=== PATIENT | female | born 1980 | race Hispanic/Latino ===

== ENCOUNTER 2017-04-07 18:53 | Emergency (ER) | payer MEDICAID, OTHER ==
[2017-04-07 20:34] LABS: APPEARANCE,URINE Clear (CLEAR); BILIRUBIN,URINE Negative (NEGATIVE); COLOR,URINE Yellow (YELLOW); GLUCOSE, URINE (UA) Negative (NEGATIVE); KETONES,URINE Negative (NEGATIVE); LEUKOCYTE ESTERASE ,URINE Negative (NEGATIVE); NITRATE,URINE Negative (NEGATIVE); OCCULT BLOOD,URINE Negative (NEGATIVE); PROTEIN,URINE Negative (NEGATIVE); UROBILINOGEN,URINE 0.2 mg/dL (0.2-1.0)
[2017-04-07 20:36] LABS: HCG,QUAL RESULT NEGATIVE (NEGATIVE)
== END 2017-04-07 22:15 | disposition home or self-care (01) ==
LOC: EDH 18:53
DX: N83.292 Other ovarian cyst, left side (principal); N83.291 Other ovarian cyst, right side; F41.9 Anxiety disorder, unspecified; Z90.49 Acquired absence of other specified parts of digestive tract; Z98.890 Other specified postprocedural states
CPT/HCPCS: 76830; 76856; 81003; 81025

== ENCOUNTER 2017-04-15 08:27 | Emergency (ER) | payer MEDICAID, OTHER ==
[2017-04-15] MEDS ORDERED: IBUPROFEN 800 MG TAB ONE (09:09)
[2017-04-15 09:12] LABS: BASOPHILS % (AUTO) 0.8 % (0.0-5.0); EOSINOPHILS % (AUTO) 2.1 % (0.0-8.0); HEMATOCRIT 26.2 % (36-48); LYMPHOCYTES % (AUTO) 28.6 % (21.0-51.0); MEAN CORPUSCULAR HEMOGLOBIN 18.4 pg (27.0-33.0); MEAN CORPUSCULAR HGB CONC 31.6 g/dL (32.0-36.0); MEAN CORPUSCULAR VOLUME 58.2 fL (79-99); MONOCYTES % (AUTO) 9.2 % (3.0-13.0); NEUTROPHILS % (AUTO) 59.3 % (40.0-77.0); PLATELET COUNT (AUTO) 400 K/uL (130-400); RED CELL DISTRIBUTION WIDTH 19.5 % (11.0-15.5)
[2017-04-15 09:17] LABS: CREATININE 0.7 mg/dL (0.5-1.5); POTASSIUM 3.9 mmol/L (3.5-5.1)
[2017-04-15 09:19] LABS: APPEARANCE,URINE Clear (CLEAR); BILIRUBIN,URINE Negative (NEGATIVE); COLOR,URINE Yellow (YELLOW); GLUCOSE, URINE (UA) Negative (NEGATIVE); KETONES,URINE Negative (NEGATIVE); LEUKOCYTE ESTERASE ,URINE Negative (NEGATIVE); NITRATE,URINE Negative (NEGATIVE); OCCULT BLOOD,URINE Negative (NEGATIVE); PROTEIN,URINE Negative (NEGATIVE); UROBILINOGEN,URINE 0.2 mg/dL (0.2-1.0)
[2017-04-15 09:20] LABS: HCG,QUAL RESULT NEGATIVE (NEGATIVE)
[2017-04-15 09:23] LABS: ALBUMIN 3.3 g/dL (3.5-5.0); BILIRUBIN,TOTAL 0.2 mg/dL (0.2-1.0); TOTAL PROTEIN, SERUM 8.1 g/dL (6.0-8.3)
[2017-04-15] MEDS ORDERED: ESTROGENS,CONJUGATED 25 MG/VIAL IM SCH (09:45)
== END 2017-04-15 10:39 | disposition home or self-care (01) ==
LOC: EDH 08:27
DX: D64.9 Anemia, unspecified (principal); N93.8 Other specified abnormal uterine and vaginal bleeding; Z90.49 Acquired absence of other specified parts of digestive tract; Z98.890 Other specified postprocedural states
CPT/HCPCS: 36415; 80053; 81003; 81025; 85025; 96372; 99284; A4218; J1410

== ENCOUNTER 2017-04-15 14:15 | Emergency (ER) | payer MEDICAID, OTHER ==
[2017-04-15] MEDS ORDERED: SODIUM CHLORIDE 0.9% 1000ML 1,000 ML IV ONE (15:27)
[2017-04-15] MEDS ORDERED: DiphenhydrAMINE HCL 50 MG/ML VIAL ONE (15:27)
[2017-04-15] MEDS ORDERED: METHYLPREDNISOLONE SOD SUCC 125MG/2ML VIAL ONE (15:27)
[2017-04-15] MEDS ORDERED: FAMOTIDINE/PF 20 MG/2 ML VIAL IV ONE (15:27)
[2017-04-15 15:30] LABS: BASOPHILS % (AUTO) 0.5 % (0.0-5.0); EOSINOPHILS % (AUTO) 0.4 % (0.0-8.0); HEMATOCRIT 26.7 % (36-48); LYMPHOCYTES % (AUTO) 14.2 % (21.0-51.0); MEAN CORPUSCULAR HEMOGLOBIN 18.4 pg (27.0-33.0); MEAN CORPUSCULAR HGB CONC 31.9 g/dL (32.0-36.0); MEAN CORPUSCULAR VOLUME 57.7 fL (79-99); NEUTROPHILS % (AUTO) 78.9 % (40.0-77.0); PLATELET COUNT (AUTO) 436 K/uL (130-400); RED BLOOD CELL COUNT(AUTO) 4.63 MIL/uL (4.00-5.50); RED CELL DISTRIBUTION WIDTH 18.5 % (11.0-15.5); WHITE BLOOD COUNT (AUTO) 10.5 K/uL (4.8-10.8)
[2017-04-15] MEDS ORDERED: ONDANSETRON HCL 4 MG/2 ML VIAL ONE (15:52)
== END 2017-04-15 18:35 | disposition home or self-care (01) ==
LOC: EDH 14:15
DX: T78.49XA Other allergy, initial encounter (principal); X58.XXXA Exposure to other specified factors, initial encounter
CPT/HCPCS: 36415 ×2; 80053; 81003; 81025; 85025 ×2; 96361; 96372; 96374; 96375; 99284 ×2; A4218; J1200; J1410; J2405; J2930; J3490; J7030

== ENCOUNTER 2017-11-23 11:13 | Emergency (ER) | payer MEDICAID | END 2017-11-23 13:44 | disposition home or self-care (01) | LOC: EDH 11:13 | DX: J10.1 Influenza due to other identified influenza virus with other respiratory manifestations (principal); R11.2 Nausea with vomiting, unspecified; Z90.49 Acquired absence of other specified parts of digestive tract; Z98.890 Other specified postprocedural states; Z87.891 Personal history of nicotine dependence | CPT/HCPCS: 87804; 87880 ==

== ENCOUNTER 2018-09-08 17:03 | Emergency (ER) | payer MEDICAID ==
[2018-09-08] MEDS ORDERED: DICYCLOMINE HCL 10 MG/ML 2ML AMP IM ONE (17:47)
[2018-09-08] MEDS ORDERED: SODIUM CHLORIDE 0.9% 1000ML 1,000 ML IV ONE (17:47)
[2018-09-08] MEDS ORDERED: FAMOTIDINE/PF 20 MG/2 ML VIAL IV ONE (17:47)
[2018-09-08] MEDS ORDERED: ONDANSETRON HCL 4 MG/2 ML VIAL ONE (17:47)
[2018-09-08 17:55] LABS: BASOPHILS % (AUTO) 0.3 % (0.0-5.0); EOSINOPHILS % (AUTO) 0.3 % (0.0-8.0); HEMATOCRIT 30.9 % (36-48); MEAN CORPUSCULAR HEMOGLOBIN 19.1 pg (27.0-33.0); MEAN CORPUSCULAR HGB CONC 30.4 g/dL (32.0-36.0); MEAN CORPUSCULAR VOLUME 62.8 fL (79-99); NEUTROPHILS % (AUTO) 86.4 % (40.0-77.0); PLATELET COUNT (AUTO) 409 K/uL (130-400); RED BLOOD CELL COUNT(AUTO) 4.91 MIL/uL (4.00-5.50); RED CELL DISTRIBUTION WIDTH 18.5 % (11.0-15.5); WHITE BLOOD COUNT (AUTO) 11.6 K/uL (4.8-10.8)
[2018-09-08 18:01] LABS: CREATININE 0.9 mg/dL (0.5-1.5); POTASSIUM 3.9 mmol/L (3.5-5.1)
[2018-09-08 18:13] LABS: ALBUMIN 3.2 g/dL (3.5-5.0); BILIRUBIN,TOTAL 0.4 mg/dL (0.2-1.0); TOTAL PROTEIN, SERUM 8.2 g/dL (6.0-8.3)
[2018-09-08 19:00] LABS: OCCULT BLOOD STOOL SINGLE ONLY NEGATIVE (NEGATIVE)
== END 2018-09-08 20:20 | disposition home or self-care (01) ==
LOC: EDH 17:03
DX: A09 Infectious gastroenteritis and colitis, unspecified (principal); F41.9 Anxiety disorder, unspecified; Z90.49 Acquired absence of other specified parts of digestive tract; Z98.890 Other specified postprocedural states
CPT/HCPCS: 36415; 80053; 82150; 82270; 83630; 83690; 84702; 85025; 87046; 87324; 96365; 96372; 96375; 99285; J0500; J2405; J3490; J7030

== ENCOUNTER 2019-03-08 01:44 | Emergency (ER) | payer MEDICAID ==
[2019-03-08] MEDS ORDERED: DEXAMETHASONE SOD PHOSPHATE 10MG/ML 1ML VIAL ONE (02:27)
[2019-03-08] MEDS ORDERED: CEFTRIAXONE SODIUM 1 GM ONE (02:27)
[2019-03-08] MEDS ORDERED: LIDOCAINE HCL-MPF 1% 2ML VIAL ONE (02:28)
== END 2019-03-08 03:48 | disposition home or self-care (01) ==
LOC: EDH 01:44
DX: J20.9 Acute bronchitis, unspecified (principal); F41.9 Anxiety disorder, unspecified; Z90.49 Acquired absence of other specified parts of digestive tract; Z98.890 Other specified postprocedural states; Z72.0 Tobacco use
CPT/HCPCS: 71046; 87804 ×2; 96372 ×2; 99285; J0696; J1100; J3490

== ENCOUNTER 2019-12-27 18:49 | Emergency (ER) | payer MEDICAID ==
[2019-12-27] MEDS ORDERED: KETOROLAC TROMETHAMINE 30MG/ML ONE (20:21)
== END 2019-12-27 20:30 | disposition home or self-care (01) ==
LOC: EDH 18:49
DX: S83.8X2A Sprain of other specified parts of left knee, initial encounter (principal); Z90.49 Acquired absence of other specified parts of digestive tract; Z98.890 Other specified postprocedural states; X58.XXXA Exposure to other specified factors, initial encounter; Y93.89 Activity, other specified; Y92.89 Other specified places as the place of occurrence of the external cause; Y99.8 Other external cause status
CPT/HCPCS: 73562; 96372; 99283; J1885

== ENCOUNTER 2020-03-09 21:14 | Emergency (ER) | payer OTHER, MEDICAID ==
[2020-03-09] MEDS ORDERED: PHENAZOPYRIDINE HCL 200 MG TABLET ONE (21:42)
[2020-03-09] MEDS ORDERED: ACETAMINOPHEN 500 MG TABLET ONE (21:42)
[2020-03-09 21:46] LABS: BASOPHILS % (AUTO) 0.5 % (0.0-5.0); EOSINOPHILS % (AUTO) 1.1 % (0.0-8.0); LYMPHOCYTES % (AUTO) 25.6 % (21.0-51.0); MEAN CORPUSCULAR HEMOGLOBIN 22.1 pg (27.0-33.0); MEAN CORPUSCULAR HGB CONC 31.1 g/dL (32.0-36.0); MEAN CORPUSCULAR VOLUME 71.3 fL (79-99); MONOCYTES % (AUTO) 6.2 % (3.0-13.0); NEUTROPHILS % (AUTO) 66.4 % (40.0-77.0); PLATELET COUNT (AUTO) 372 K/uL (130-400); RED BLOOD CELL COUNT(AUTO) 5.33 MIL/uL (4.00-5.50); RED CELL DISTRIBUTION WIDTH 20.5 % (11.0-15.5); WHITE BLOOD COUNT (AUTO) 8.8 K/uL (4.8-10.8)
[2020-03-09 21:47] LABS: APPEARANCE,URINE Cloudy (CLEAR); BILIRUBIN,URINE Negative (NEGATIVE); COLOR,URINE Yellow (YELLOW); GLUCOSE, URINE (UA) >=1000 mg/dL (NEGATIVE); KETONES,URINE Trace mg/dL (NEGATIVE); LEUKOCYTE ESTERASE ,URINE Moderate (NEGATIVE); NITRATE,URINE Negative (NEGATIVE); OCCULT BLOOD,URINE Small (NEGATIVE); PROTEIN,URINE POS 2+ mg/dL (NEGATIVE)
[2020-03-09 22:00] LABS: BACTERIA,URINE Few /HPF (None Seen)
[2020-03-09 22:01] LABS: MUCUS,URINE Few LPF (None Seen); SQUAMOUS EPITHELIAL CELL,UR Moderate /HPF (0-2)
[2020-03-09] MEDS ORDERED: CEFTRIAXONE 1G VIAL ONE (22:14)
[2020-03-09 22:15] LABS: CREATININE 1.1 mg/dL (0.5-1.5); POTASSIUM 3.8 mmol/L (3.5-5.1)
[2020-03-09] MEDS ORDERED: 0.9%NACL 1000ML 1,000 ML IV ONE (22:15)
[2020-03-09] MEDS ORDERED: 0.9%NACL 100ML 100 ML IV ONE (22:15)
[2020-03-09 22:19] LABS: ALBUMIN 3.5 g/dL (3.5-5.0); BILIRUBIN,TOTAL 0.2 mg/dL (0.2-1.0); TOTAL PROTEIN, SERUM 8.2 g/dL (6.0-8.3)
== END 2020-03-09 23:18 | disposition home or self-care (01) ==
LOC: EDH 21:14
DX: N30.00 Acute cystitis without hematuria (principal); E66.09 Other obesity due to excess calories; R73.9 Hyperglycemia, unspecified; F41.9 Anxiety disorder, unspecified; Z90.49 Acquired absence of other specified parts of digestive tract; Z98.890 Other specified postprocedural states
CPT/HCPCS: 36415; 80053; 81001; 82010; 82948 ×2; 83690; 85025; 87088; 96365; 96375; 99284; J0696; J7030

== ENCOUNTER 2020-07-14 11:04 | Emergency (ER) | payer OTHER, MEDICAID ==
[2020-07-14 12:08] LABS: BASOPHILS % (AUTO) 0.6 % (0.0-5.0); EOSINOPHILS % (AUTO) 1.7 % (0.0-8.0); HEMATOCRIT 37.4 % (36-48); LYMPHOCYTES % (AUTO) 26.7 % (21.0-51.0); MEAN CORPUSCULAR HEMOGLOBIN 23.9 pg (27.0-33.0); MEAN CORPUSCULAR HGB CONC 31.8 g/dL (32.0-36.0); MEAN CORPUSCULAR VOLUME 75.1 fL (79-99); MONOCYTES % (AUTO) 7.4 % (3.0-13.0); NEUTROPHILS % (AUTO) 63.2 % (40.0-77.0); PLATELET COUNT (AUTO) 333 K/uL (130-400); RED BLOOD CELL COUNT(AUTO) 4.98 MIL/uL (4.00-5.50); RED CELL DISTRIBUTION WIDTH 14.1 % (11.0-15.5)
[2020-07-14 12:21] LABS: ALBUMIN 3.4 g/dL (3.5-5.0); BILIRUBIN,TOTAL 0.3 mg/dL (0.2-1.0); CREATININE 0.7 mg/dL (0.5-1.5); POTASSIUM 4.2 mmol/L (3.5-5.1); TOTAL PROTEIN, SERUM 8.2 g/dL (6.0-8.3)
[2020-07-14] MEDS ORDERED: SODIUM CHLORIDE 0.9% 1000ML 1,000 ML IV ONE (13:07)
[2020-07-14 13:23] LABS: APPEARANCE,URINE Clear (CLEAR); BILIRUBIN,URINE Negative (NEGATIVE); COLOR,URINE Yellow (YELLOW); GLUCOSE, URINE (UA) >=1000 mg/dL (NEGATIVE); KETONES,URINE Negative (NEGATIVE); LEUKOCYTE ESTERASE ,URINE Negative (NEGATIVE); NITRATE,URINE Negative (NEGATIVE); OCCULT BLOOD,URINE Negative (NEGATIVE); PH,URINE 5.5 (5.0-8.0); PROTEIN,URINE Trace mg/dL (NEGATIVE); UROBILINOGEN,URINE 0.2 mg/dL (0.2-1.0)
[2020-07-14 13:37] LABS: BACTERIA,URINE Rare /HPF (None Seen); RBC,URINE 0-1 /HPF (0-1); SQUAMOUS EPITHELIAL CELL,UR Rare /HPF (0-2); WBC,URINE 0-1 /HPF (0-1)
== END 2020-07-14 14:47 | disposition home or self-care (01) ==
LOC: EDH 11:04
DX: E11.65 Type 2 diabetes mellitus with hyperglycemia (principal); I10 Essential (primary) hypertension; F41.9 Anxiety disorder, unspecified; Z98.890 Other specified postprocedural states; Z90.49 Acquired absence of other specified parts of digestive tract
CPT/HCPCS: 36415; 80053; 81001; 82948 ×2; 85025; 96360; 96361; 99283; J7030

== ENCOUNTER 2021-02-22 05:55 | Day surgery (SDC) | payer MEDICAID, OTHER ==
[2021-02-19 15:55] LABS: BASOPHILS % (AUTO) 0.4 % (0.0-5.0); EOSINOPHILS % (AUTO) 1.1 % (0.0-8.0); HEMATOCRIT 38.8 % (36-48); LYMPHOCYTES % (AUTO) 27.4 % (21.0-51.0); MEAN CORPUSCULAR HEMOGLOBIN 22.5 pg (27.0-33.0); MEAN CORPUSCULAR HGB CONC 30.9 g/dL (32.0-36.0); MEAN CORPUSCULAR VOLUME 72.7 fL (79-99); MONOCYTES % (AUTO) 6.8 % (3.0-13.0); PLATELET COUNT (AUTO) 391 K/uL (130-400); RED BLOOD CELL COUNT(AUTO) 5.34 MIL/uL (4.00-5.50); RED CELL DISTRIBUTION WIDTH 15.9 % (11.0-15.5); WHITE BLOOD COUNT (AUTO) 8.9 K/uL (4.8-10.8)
[2021-02-21] MEDS: CEFAZOLIN SODIUM 2 GM VIAL IV SCH (08:30)
[2021-02-21 09:27] VITALS: BP 162/75
[2021-02-22] VITALS (16 sets, daily range): BP systolic 144–170; BP diastolic 81–108
[~2021-02-22] VITALS: Ht 167.6 cm; Wt 105.8 kg
[2021-02-22] MEDS ORDERED: CEFAZOLIN SODIUM 1 GM VIAL ONE (06:15)
[2021-02-22] MEDS ORDERED: 0.9%NACL 1000ML 1,000 ML IV ONE (06:15)
[2021-02-22] MEDS ORDERED: METF-444 PO (06:24)
[2021-02-22] MEDS ORDERED: LOSA25TA41 PO (06:24)
[2021-02-22] MEDS ORDERED: CANA300T PO (06:24)
[2021-02-22] MEDS ORDERED: ESTR1TAB17 PO (06:24)
[2021-02-22 07:03] LABS: CREATININE 0.7 mg/dL (0.5-1.5)
[2021-02-22] MEDS ORDERED: ROCURONIUM 10MG/1ML SYR 10 MG/ML ML ONE (07:09)
[2021-02-22] MEDS ORDERED: FENTANYL CITRATE PF 50 MCG/1 ML 2ML VIAL ONE (07:09)
[2021-02-22] MEDS ORDERED: MIDAZOLAM HCL 1 MG/ML 2ML VIAL ONE (07:09)
[2021-02-22] MEDS ORDERED: NEOSTIGMINE 5MG/5ML SYR IV ONE (07:09)
[2021-02-22] MEDS ORDERED: GLYCOPYRROLATE 1 MG/5 ML SYRINGE ONE (07:09)
[2021-02-22] MEDS ORDERED: LIDOCAINE PF 100MG/5ML (2%) SYRINGE 5ML ONE (07:09)
[2021-02-22] MEDS ORDERED: PROPOFOL 10 MG/ML 20ML VIAL IV ONE (07:09)
[2021-02-22] MEDS ORDERED: DEXAMETHASONE SOD PHOSPHATE 10MG/ML 1ML VIAL ONE (07:10)
[2021-02-22] MEDS ORDERED: ONDANSETRON 4MG INJ ONE (07:10)
[2021-02-22] MEDS: CEFAZOLIN SODIUM 2 GM VIAL IV SCH (07:39)
[2021-02-22] MEDS ORDERED: HYDRALAZINE 20MG/ML VIAL ONE (08:35)
[2021-02-22] MEDS ORDERED: MEPERIDINE-PF 25 MG/ML SYG ONE (08:49)
== END 2021-02-22 09:45 | disposition home or self-care (01) ==
LOC: DAH 05:55
PROVIDERS: ATTEND Obstetrics & Gynecology
DX: N92.0 Excessive and frequent menstruation with regular cycle (principal); Z20.822 Contact with and (suspected) exposure to COVID-19; E11.9 Type 2 diabetes mellitus without complications; I10 Essential (primary) hypertension; Z79.01 Long term (current) use of anticoagulants; Z79.899 Other long term (current) drug therapy
CPT/HCPCS: 36415 ×2; 58563; 80048; 82948 ×2; 84703; 85025; 86850 ×2; 86900 ×2; 86901 ×2; 87635; A4215; A4221; A4222; A4223; A4351; A4355; A4600; A4663; A4930; A6260; C9803; J0360; J0690; J1100; J2175; J2250; J2405; J2710; J3010; J3490 ×3; J7030 ×2; J2001; J2704

== ENCOUNTER 2022-06-14 09:18 | Emergency (ER) | payer MEDICAID, OTHER ==
[~2022-06-14] VITALS: Ht 165.1 cm; Wt 100.2 kg
[~2022-06-14 09:18] MED LIST: CANA300T PO; ESTR1TAB17 PO; LOSA25TA41 PO; METF-444 PO
[2022-06-14 09:19] VITALS: BP 164/95
[2022-06-14 09:58] LABS: BASOPHILS % (AUTO) 0.7 % (0.0-5.0); EOSINOPHILS % (AUTO) 1.1 % (0.0-8.0); HEMATOCRIT 37.9 % (36-48); LYMPHOCYTES % (AUTO) 21.5 % (21.0-51.0); MEAN CORPUSCULAR HEMOGLOBIN 22.7 pg (27.0-33.0); MEAN CORPUSCULAR HGB CONC 30.6 g/dL (32.0-36.0); MEAN CORPUSCULAR VOLUME 74.3 fL (79-99); MONOCYTES % (AUTO) 7.2 % (3.0-13.0); NEUTROPHILS % (AUTO) 69.1 % (40.0-77.0); PLATELET COUNT (AUTO) 361 K/uL (130-400); RED CELL DISTRIBUTION WIDTH 15.6 % (11.0-15.5); WHITE BLOOD COUNT (AUTO) 7.5 K/uL (4.8-10.8)
[2022-06-14 10:08] LABS: APPEARANCE,URINE CLOUDY (CLEAR); BILIRUBIN,URINE NEGATIVE (NEGATIVE); COLOR,URINE LIGHT-YELLOW (YELLOW); GLUCOSE, URINE (UA) NEGATIVE (NEGATIVE); KETONES,URINE NEGATIVE (NEGATIVE); LEUKOCYTE ESTERASE ,URINE 500 Leu/uL (NEGATIVE); NITRATE,URINE 1+ (NEGATIVE); OCCULT BLOOD,URINE MODERATE (NEGATIVE); PH,URINE 6.5 (5.0-8.0); PROTEIN,URINE 50 mg/dL (NEGATIVE); UROBILINOGEN,URINE 0.2 mg/dL (0.2-1.0)
[2022-06-14 10:16] LABS: HCG,QUALITATIVE URINE NEGATIVE (NEGATIVE)
[2022-06-14 10:21] LABS: CREATININE 0.7 mg/dL (0.5-1.5); POTASSIUM 3.7 mmol/L (3.5-5.1)
[2022-06-14 10:26] LABS: ALBUMIN 3.5 g/dL (3.5-5.0); TOTAL PROTEIN, SERUM 8.1 g/dL (6.0-8.3)
[2022-06-14 10:40] LABS: BACTERIA,URINE FEW /HPF (None Seen); MUCUS,URINE RARE LPF (None Seen); RBC,URINE 51-100 /HPF (0-1); SQUAMOUS EPITHELIAL CELL,UR FEW /HPF (0-2); WBC,URINE 51-100 /HPF (0-1)
[2022-06-14] MEDS ORDERED: CEPH500B PO (12:15)
[2022-06-14] MEDS ORDERED: CEFTRIAXONE 1G VIAL IM ONE (12:30)
== END 2022-06-14 12:50 | disposition home or self-care (01) ==
LOC: EDH 09:18
DX: N39.0 Urinary tract infection, site not specified (principal); Z79.84 Long term (current) use of oral hypoglycemic drugs; Z79.899 Other long term (current) drug therapy; Z90.49 Acquired absence of other specified parts of digestive tract; Z98.890 Other specified postprocedural states
CPT/HCPCS: 99283; 80053; 85025; 87077; 87088; 87186; 81001; 81025; 36415; 96372; J0696

== ENCOUNTER 2022-09-11 14:38 | Emergency (ER) | payer MEDICAID ==
[~2022-09-11] VITALS: Ht 165.1 cm; Wt 93.4 kg
[~2022-09-11 14:38] MED LIST changes: +CEPH500B PO
[2022-09-11 16:48] VITALS: BP 140/76
[2022-09-11 17:00] LABS: BASOPHILS % (AUTO) 0.4 % (0.0-5.0); EOSINOPHILS % (AUTO) 0.7 % (0.0-8.0); HEMATOCRIT 38.5 % (36-48); LYMPHOCYTES % (AUTO) 24.4 % (21.0-51.0); MEAN CORPUSCULAR HEMOGLOBIN 22.4 pg (27.0-33.0); MEAN CORPUSCULAR HGB CONC 30.4 g/dL (32.0-36.0); MEAN CORPUSCULAR VOLUME 73.6 fL (79-99); MONOCYTES % (AUTO) 7.3 % (3.0-13.0); NEUTROPHILS % (AUTO) 66.9 % (40.0-77.0); PLATELET COUNT (AUTO) 416 K/uL (130-400); RED BLOOD CELL COUNT(AUTO) 5.23 MIL/uL (4.00-5.50); RED CELL DISTRIBUTION WIDTH 15.2 % (11.0-15.5); WHITE BLOOD COUNT (AUTO) 9.2 K/uL (4.8-10.8)
[2022-09-11 17:09] LABS: APPEARANCE,URINE CLOUDY (CLEAR); BILIRUBIN,URINE NEGATIVE (NEGATIVE); COLOR,URINE YELLOW (YELLOW); GLUCOSE, URINE (UA) NEGATIVE (NEGATIVE); KETONES,URINE 5 mg/dL (NEGATIVE); LEUKOCYTE ESTERASE ,URINE 25 Leu/uL (NEGATIVE); NITRATE,URINE NEGATIVE (NEGATIVE); OCCULT BLOOD,URINE NEGATIVE (NEGATIVE); PROTEIN,URINE 50 mg/dL (NEGATIVE)
[2022-09-11 17:11] LABS: CREATININE 0.8 mg/dL (0.5-1.5); POTASSIUM 3.2 mmol/L (3.5-5.1)
[2022-09-11 17:12] LABS: HCG,QUALITATIVE URINE NEGATIVE (NEGATIVE)
[2022-09-11 17:16] LABS: ALBUMIN 3.9 g/dL (3.5-5.0); TOTAL PROTEIN, SERUM 8.8 g/dL (6.0-8.3)
[2022-09-11 17:28] LABS: BACTERIA,URINE FEW /HPF (None Seen); MUCUS,URINE MANY LPF (None Seen); SQUAMOUS EPITHELIAL CELL,UR MOD /HPF (0-2)
[2022-09-11] MEDS ORDERED: 0.9%NACL 1000ML 1,000 ML IV ONE (19:00)
[2022-09-11] MEDS ORDERED: CEFTRIAXONE 1G VIAL IVPB ONE (19:00)
[2022-09-11] MEDS ORDERED: POTASSIUM BICARB/CIT AC 25 MEQ TABLET.EFF PO ONE (19:00)
[2022-09-11] MEDS ORDERED: ONDA4TAB10 PO (20:18)
[2022-09-11] MEDS ORDERED: NITR100C PO (20:18)
== END 2022-09-11 20:30 | disposition home or self-care (01) ==
LOC: EDH 14:38
DX: N39.0 Urinary tract infection, site not specified (principal); E87.6 Hypokalemia; E11.9 Type 2 diabetes mellitus without complications; F41.9 Anxiety disorder, unspecified; F32.A Depression, unspecified; Z79.84 Long term (current) use of oral hypoglycemic drugs; Z79.899 Other long term (current) drug therapy; Z90.49 Acquired absence of other specified parts of digestive tract
CPT/HCPCS: 99284; 96365; 80053; 85025; 87077; 87088; 87186; 81001; 81025; 36415; J7030; J0696

== ENCOUNTER 2023-02-28 12:57 | Emergency (ER) | payer MEDICAID, OTHER ==
[~2023-02-28] VITALS: Ht 165.1 cm; Wt 93.0 kg
[~2023-02-28 12:57] MED LIST changes: +NITR100C PO; +ONDA4TAB10 PO
[2023-02-28 14:31] LABS: APPEARANCE,URINE CLEAR (CLEAR); BILIRUBIN,URINE NEGATIVE (NEGATIVE); COLOR,URINE LIGHT-YELLOW (YELLOW); GLUCOSE, URINE (UA) NEGATIVE (NEGATIVE); KETONES,URINE NEGATIVE (NEGATIVE); LEUKOCYTE ESTERASE ,URINE NEGATIVE Leu/uL (NEGATIVE); NITRATE,URINE NEGATIVE (NEGATIVE); OCCULT BLOOD,URINE NEGATIVE (NEGATIVE); PH,URINE 6.5 (5.0-8.0); PROTEIN,URINE 20 mg/dL (NEGATIVE); UROBILINOGEN,URINE 0.2 mg/dL (0.2-1.0)
[2023-02-28 14:32] LABS: ADD UA MICROSCOPIC YES
[2023-02-28 14:33] LABS: HCG,QUALITATIVE URINE NEGATIVE (NEGATIVE)
[2023-02-28 14:35] LABS: MUCUS,URINE RARE LPF (None Seen); SQUAMOUS EPITHELIAL CELL,UR MOD /HPF (0-2)
[2023-02-28 16:37] LABS: BASOPHILS # (AUTO) 0.04 K/uL (0.00-0.20); BASOPHILS % (AUTO) 0.5 % (0.0-5.0); EOSINOPHILS # (AUTO) 0.03 K/uL (0.00-0.70); EOSINOPHILS % (AUTO) 0.4 % (0.0-8.0); HEMATOCRIT 37.8 % (36-48); IMMATURE GRANULOCYTE ABSOLUTE 0.02 K/uL (0-1); LYMPHOCYTES # (AUTO) 2.8 K/uL (1.0-4.8); LYMPHOCYTES % (AUTO) 34.8 % (21.0-51.0); MEAN CORPUSCULAR HEMOGLOBIN 22.1 pg (27.0-33.0); MEAN CORPUSCULAR HGB CONC 30.7 g/dL (32.0-36.0); MEAN CORPUSCULAR VOLUME 71.9 fL (79-99); MONOCYTES # (AUTO) 0.5 K/uL (0.1-1.0); MONOCYTES % (AUTO) 6.1 % (3.0-13.0); NEUTROPHILS # (AUTO) 4.7 K/uL (1.8-7.7); PLATELET COUNT (AUTO) 441 K/uL (130-400); RED BLOOD CELL COUNT(AUTO) 5.26 MIL/uL (4.00-5.50); RED CELL DISTRIBUTION WIDTH 18.3 % (11.0-15.5); WHITE BLOOD COUNT (AUTO) 8.2 K/uL (4.8-10.8)
[2023-02-28 16:38] LABS: RAPID GROUP A STREP negative (NEGATIVE); SARS-CoV-2, RNA, NAAT NEGATIVE SARS CoV-2 (NEGATIVE)
[2023-02-28 16:48] LABS: CREATININE 0.7 mg/dL (0.5-1.5); POTASSIUM 3.7 mmol/L (3.5-5.1)
[2023-02-28 16:58] LABS: ALBUMIN 4.2 g/dL (3.5-5.0); BILIRUBIN,TOTAL 0.3 mg/dL (0.2-1.0); TOTAL PROTEIN, SERUM 9.1 g/dL (6.0-8.3)
[2023-02-28 17:07] LABS: INFLUENZA TYPE A Negative For Type A (NEGATIVE); INFLUENZA TYPE B Negative For Type B (NEGATIVE)
[2023-02-28] MEDS ORDERED: FAMO20TA8 PO (17:13)
[2023-02-28 17:58] VITALS: BP 131/74; PULSE 78; RESP 18; O2SAT 100
== END 2023-02-28 17:59 | disposition home or self-care (01) ==
LOC: EDH 12:57
DX: B34.9 Viral infection, unspecified (principal); K52.9 Noninfective gastroenteritis and colitis, unspecified; E11.9 Type 2 diabetes mellitus without complications; I10 Essential (primary) hypertension; F41.9 Anxiety disorder, unspecified; F32.A Depression, unspecified; Z79.84 Long term (current) use of oral hypoglycemic drugs; Z79.899 Other long term (current) drug therapy; Z90.49 Acquired absence of other specified parts of digestive tract; Z20.822 Contact with and (suspected) exposure to COVID-19
CPT/HCPCS: 99285; 71045; 87635; 84484; 80053; 85025; 87880; 87804 ×2; 81001; 81025; 36415; 93005; C9803

== ENCOUNTER 2024-07-19 19:33 | Emergency (ER) | payer SELFPAY ==
[~2024-07-19] VITALS: Ht 167.6 cm; Wt 95.7 kg
[~2024-07-19 19:33] MED LIST changes: +FAMO20TA8 PO; +ONDA-243 PO; -ONDA4TAB10 PO
--- NOTE | 2024-07-19 20:22 | ERN ---
General Chief Complaint: Shoulder Injury/Pain Stated Complaint: LT ARM UNABLE TO LIFT FOR 2 MONTHS Time Seen by MD: 19:40 History of Present Illness Initial Comments Patient comes in with an inability to left arm raise above 90 at the shoulder. There was also associated left neck pain. Patient does not remember any trauma or overuse of the left arm. Past medical history is noncontributory. Timing/Duration: 1 week, constant Allergies: Coded Allergies: No Known Drug Allergies (Verified Allergy, Unknown, 04/15/17) Home Meds Active Scripts Famotidine (Famotidine) 20 Mg Tablet, 20 MG PO BID for 7 Days, #14 TAB Prov:SUZAN JOINER V HOUSE NURSE 02/28/23 Nitrofurantoin Macrocrystal (Nitrofurantoin) 100 Mg Capsule, 100 MG PO BID for 5 Days, #10 CAP 0 Refills Prov:MATHEUS VASQUEZ RN CHRONIC 09/11/22 Ondansetron (Ondansetron Odt) 4 Mg Tab.rapdis, 4 MG PO Q6HPRN, #15 TAB 0 Refills Prov:MATHEUS VASQUEZ RN CHRONIC 09/11/22 Cephalexin Monohydrate (Keflex) 500 Mg Cap, 500 MG PO BID for 7 Days, #28 CAP Prov:OMER CALI RN CHRONIC 06/14/22 Reported Medications Estradiol (Estradiol) 1 Mg Tablet, 1 MG PO DAILY, TAB 02/22/21 Canagliflozin (Invokana) 300 Mg Tablet, 300 MG PO DAILY, TAB 02/22/21 Losartan Potassium (Losartan Potassium) 25 Mg Tablet, 12.5 MG PO DAILY, TAB 02/22/21 Metformin HCl (Metformin HCl) 500 Mg Tablet, 500 MG PO DAILY, TAB 02/22/21 Past Medical History Past Medical History: Hypertension Past Surgical History: Cholecystectomy, Other Surgical History Other: UTERINE ABLATION Female( History) LMP: July 15, 2024 Constitutional: (-) chills, (-) diaphoresis, (-) fever, (-) malaise, (-) weakness, (-) other documentation EENTM: (-) eye pain, (-) blurred vision, (-) tearing, (-) double vision, (-) ear pain, (-) ear discharge, (-) nose pain, (-) nose congestion, (-) throat pain, (-) Throat swelling, (-) mouth pain, (-) tooth pain, (-) mouth swelling, (-) other documentation Respiratory: (-) cough, (-) orthopnea, (-) short of breath, (-) stridor, (-) wheezing, (-) other documentation Cardiovascular: (-) chest pain, (-) edema, (-) palpitations, (-) syncope, (-) dyspnea on exertion, (-) other documentation Gastrointestinal/Abdominal: (-) nausea, (-) vomiting, (-) diarrhea, (-) abdominal pain, (-) abdominal distention, (-) constipation, (-) rectal bleeding, (-) dark stool/melena, (-) other documentation Musculoskeletal: (+) Neck pain, (+) muscle pain Skin: (-) laceration, (-) contusion, (-) abrasion, (-) abscess, (-) rash, (-) change in color, (-) change in hair, (-) change in nails, (-) diaphoresis, (-) dryness, (-) other documentation Neuro: (-) altered mental status, (-) headache, (-) syncope, (-) paralysis, (-) numbness, (-) seizure, (-) pre-existing deficit, (-) tremors, (-) weakness, (-) dizziness, (-) slurred speech, (-) vertigo, (-) other documentation Physical Exam General Appearance: (+) no apparent distress Orientation: (+) oriented x 3 Extremities Comment Patient is unable to lift her left arm above 90 at the shoulder joint. She is tender at the supraspinatus origin and the infraspinatus origin. She is tender along the the supraspinatus tendon tract through her deltoid region and to its attachment on the humerus. She also has a tight muscle knot in the left trapezius muscle. MDM I believe the patient has a rotator cuff injury that incorporates the supraspinatus muscle. I do not know if it is a muscle tear or a tendon tear or an overuse injury. Most likely it is an overuse injury. I spent 10-15 minutes discussing the injury with the patient describing to her the anatomy. Also describing to her the exercises that she can take for treatment. As well as the use of Motrin ice and elevation to decrease the pain. At this point there is no need for an MRI. The patient has no insurance and can not get access to a physical therapist. Therefore I showed her online the different exercises you can do to strengthen and help decrease the pain associated with the supraspinatus injury. ED Course Vital Signs Date Time Temp Pulse Resp B/P (MAP) Pulse Ox O2 Delivery O2 Flow Rate FiO2 07/19/24 19:49 98.6 98 20 132/83 97 Room Air* 0 21 07/19/24 19:39 98.6 98 20 132/83 97 Room Air DX & DISP Disposition: Discharge Departure Impression: Primary Impression: Supraspinatus syndrome of left shoulder Condition: Stable Additional Instructions: Please look up and perform the exercises for supraspinatus tendonitis. If you can please get to a physical therapy clinic for fine tuning and getting better instructions for supraspinatus strengthening exercises. It will take 6-8 months for the injury to heal. Referrals: JOHAN ROBERTSON NP (PCP) CHEMO HOFFMANN MD July 19, 2024 20:22
[2024-07-19 20:42] VITALS: BP 128/80; PULSE 82; RESP 20; TEMP 98.6; O2SAT 97
== END 2024-07-19 20:44 | disposition home or self-care (01) ==
LOC: EDH 19:33
DX: M75.102 Unspecified rotator cuff tear or rupture of left shoulder, not specified as traumatic (principal); I10 Essential (primary) hypertension; Z79.84 Long term (current) use of oral hypoglycemic drugs; Z79.899 Other long term (current) drug therapy; Z90.49 Acquired absence of other specified parts of digestive tract
CPT/HCPCS: 99281